=== PATIENT | male | born 1960 | race Two or more races ===

== ENCOUNTER → 2019-03-03 | Outpatient (CLI) | payer OTHER | LOC: RAD 09:21 | PROVIDERS: ATTEND Registered Nurse | DX: R91.1 Solitary pulmonary nodule (principal) | CPT/HCPCS: 71250 ==

== ENCOUNTER 2019-04-04 18:27 | Emergency (ER) | payer OTHER ==
--- NOTE | 2019-04-04 20:36 | ER Document Report ---
ED Medical Screen (RME) - General Chief Complaint: Breathing Difficulty Stated Complaint: DIFFICULTY BREATHING Time Seen by Provider: 04/04/19 20:30 Primary Care Provider: MUNIRA HICKS FNP-C [Primary Care Provider] - Follow up as needed Mode of Arrival: Medic Information source: Patient Notes: 58-year-old male presented to ED for complaint of shortness of breath cough congestion for a week. He states he went to [facility] today they diagnosed him with pneumonia left lung gave him breathing treatments in the ER office and then went him to the emergency room because his O2 sats were too low. His O2 sat right now is 95% with a pulse of 84. Patient is alert oriented he is coughing consistently. We will get blood blood cultures and chest x-ray and have him examined by another provider. He states he does not drink smoke or use any drugs. I have greeted and performed a rapid initial assessment of this patient. A comprehensive ED assessment and evaluation of the patient, analysis of test results and completion of medical decision making process will be conducted by an additional ED providers. TRAVEL OUTSIDE OF THE [place] IN LAST 30 DAYS: No - Related Data Allergies/Adverse Reactions: No Known Allergies Allergy (Verified 05/15/15 01:02) Past Medical History - General Information source: Patient - Social History Cigarette use (# per day): No - Former smoker Chew tobacco use (# tins/day): No Frequency of alcohol use: None Drug Abuse: None Lives with: Family Family history: Reviewed & Not Pertinent - Past Medical History Cardiac Medical History: Reports: None Pulmonary Medical History: Reports: Hx Asthma, Hx Pneumonia Neurological Medical History: Reports: None Endocrine Medical History: Reports: None Renal/ Medical History: Reports: Hx Kidney Stones Malignancy Medical History: Reports None GI Medical History: Reports: Hx Colonoscopy Musculoskeltal Medical History: Reports Hx Musculoskeletal Trauma - Ankle foot Skin Medical History: Reports None Psychiatric Medical History: Reports: None Traumatic Medical History: Reports: Hx Fractures - Ankle and foot Infectious Medical History: Reports: None Surgical Hx: Negative Past Surgical History: Reports: None - Immunizations Hx Diphtheria, Pertussis, Tetanus Vaccination: No Physical Exam - Vital signs Vitals: Temp Pulse Resp BP Pulse Ox 97.9 F 79 24 H 125/64 92 04/04/19 18:40 04/04/19 18:40 04/04/19 18:40 04/04/19 18:40 04/04/19 18:40 Course - Vital Signs Vital signs: Temp Pulse Resp BP Pulse Ox 97.9 F 79 24 H 125/64 92 04/04/19 18:40 04/04/19 18:40 04/04/19 18:40 04/04/19 18:40 04/04/19 18:40 Doctor's Discharge - Discharge Referrals: MUNIRA HICKS, [facility]-C [Primary Care Provider] - Follow up as needed
[2019-04-04] MEDS ORDERED: LIDOCAINE 1% INJ-PF (10 MG/ML) 30 ML SDV INJ ONE (20:37)
[2019-04-04] MEDS ORDERED: CEFTRIAXONE INJ 1000 MG VIAL IM ONE (20:37)
--- NOTE | 2019-04-04 21:31 | RADIOLOGY REPORT (SQ) ---
EXAM DESCRIPTION: XR CHEST 2 VIEWS COMPLETED DATE/TME: 04/04/2019 20:36 CLINICAL HISTORY: 58 years, Male, Cough congestion, x-ray*medical pneumonia COMPARISON: Chest CT dated 03/03/2019 NUMBER OF VIEWS: Two TECHNIQUE: Frontal and lateral radiograph were acquired LIMITATIONS: None. FINDINGS: Cardiac and mediastinal contours are normal. Lungs are clear. No pleural effusion or pneumothorax. IMPRESSION: No acute disease. copyright 2010 [employer]- All Rights Reserved
[2019-04-04 21:45] LABS: APPEARANCE,URINE CLEAR; BILIRUBIN,URINE NEGATIVE (NEGATIVE); COLOR,URINE YELLOW; GLUCOSE, URINE NEGATIVE (NEGATIVE); KETONES,URINE NEGATIVE (NEGATIVE); PROTEIN,URINE NEGATIVE (NEGATIVE); URINE SPECIFIC GRAVITY 1.011; UROBILINOGEN,URINE NEGATIVE mg/dL (<2.0)
[2019-04-04 21:58] LABS: ABSOLUTE BASOPHILS # (AUTO) 0.1 10^3/uL (0.0-0.2); ABSOLUTE EOSINOPHILS # (AUTO) 0.5 10^3/uL (0.0-0.6); ABSOLUTE LYMPHOCYTES (AUTO) 1.7 10^3/uL (0.5-4.7); ABSOLUTE MONOCYTES (AUTO) 0.2 10^3/uL (0.1-1.4); BASOPHILS % (AUTO) 0.7 % (0-2); EOSINOPHILS % (AUTO) 4.5 % (0-6); HEMATOCRIT 43.7 % (37.9-51.0); HEMOGLOBIN 15.1 g/dL (13.5-17.0); LYMPHOCYTES % (AUTO) 14.5 % (13-45); MEAN CORPUSCULAR HEMOGLOBIN 30.5 pg (27.0-33.4); MEAN CORPUSCULAR HGB CONC 34.5 g/dL (32.0-36.0); MEAN CORPUSCULAR VOLUME 88 fl (80-97); MONOCYTES % (AUTO) 1.9 % (3-13); PLATELET COUNT 233 10^3/uL (150-450); RED BLOOD COUNT 4.94 10^6/uL (4.35-5.55); RED CELL DISTRIBUTION WIDTH 14.3 % (11.5-14.0); SEGMENTED NEUTROPHILS % (AUTO) 78.4 % (42-78); TOTAL CELLS COUNTED % (AUTO) 100 %; WHITE BLOOD COUNT 11.5 10^3/uL (4.0-10.5)
[2019-04-04 22:02] LABS: ALKALINE PHOSPHATASE 110 U/L (38-126); ANION GAP 15 (5-19); ASPARTATE AMINO TRANSFERASE 43 U/L (17-59); BILIRUBIN,DIRECT 0.3 mg/dL (0.0-0.4); BLOOD UREA NITROGEN 13 mg/dL (7-20); CALCIUM 10.4 mg/dL (8.4-10.2); CARBON DIOXIDE 23 mmol/L (22-30); CHLORIDE 101 mmol/L (98-107); GLUCOSE 137 mg/dL (75-110); POTASSIUM 4.6 mmol/L (3.6-5.0); TOTAL PROTEIN 8.8 g/dL (6.3-8.2)
[2019-04-05] MEDS ORDERED: IPRATROPIUM/ALBUTEROL 0.5-2.5 MG/3 ML AMPUL NEB ONE ×2 (01:28→03:15)
[2019-04-05] MEDS ORDERED: MAGNESIUM SULFATE/D5W 1 GM/100 ML RTUPB IV ONE (01:28)
--- NOTE | 2019-04-05 01:51 | ER Document Report ---
ED General - General Chief Complaint: Shortness Of Breath Stated Complaint: DIFFICULTY BREATHING Time Seen by Provider: 04/04/19 20:30 Primary Care Provider: MUNIRA HICKS FNP-C [ALLIED HEALTH PROFESSIONAL] - Follow up as needed Mode of Arrival: Medic Notes: 58-year-old male with history of COPD and asthma presents for shortness of breath for 1 week. Patient has been having productive cough with sputum and congestion. Patient denies being on oxygen at home. Patient states he went to urgent care and he was sent over due to his O2 sats being in 95%. Patient states he had a chest x-ray done there and was told he may have pneumonia. Patient received 3 breathing treatments at the urgent care and 1 by EMS with little relief. Patient also states that he was given Solu-Medrol by EMS. Patient denies any fever, chest pain, nausea/vomiting. Patient denies coughing up blood. TRAVEL OUTSIDE OF THE [place] IN LAST 30 DAYS: No - Related Data Allergies/Adverse Reactions: No Known Allergies Allergy (Verified 05/15/15 01:02) Past Medical History - General Information source: Patient - Social History Smoking Status: Former Smoker Cigarette use (# per day): No - Former smoker Chew tobacco use (# tins/day): No Frequency of alcohol use: None Drug Abuse: None Lives with: Family Family History: Reviewed & Not Pertinent Patient has suicidal ideation: No Patient has homicidal ideation: No - Past Medical History Cardiac Medical History: Reports: None Pulmonary Medical History: Reports: Hx Asthma, Hx Pneumonia Neurological Medical History: Reports: None Endocrine Medical History: Reports: None Renal/ Medical History: Reports: Hx Kidney Stones Malignancy Medical History: Reports None GI Medical History: Reports: Hx Colonoscopy Musculoskeletal Medical History: Reports Hx Musculoskeletal Trauma - Ankle foot Skin Medical History: Reports None Psychiatric Medical History: Reports: None Traumatic Medical History: Reports: Hx Fractures - Ankle and foot Infectious Medical History: Reports: None Surgical Hx: Negative Past Surgical History: Reports: None - Immunizations Hx Diphtheria, Pertussis, Tetanus Vaccination: No Review of Systems - Review of Systems Notes: Constitutional: Negative for fever. HENT: Positive for congestion and productive cough. Negative for sore throat. Eyes: Negative for visual changes. Cardiovascular: Negative for chest pain. Respiratory: Positive for shortness of breath. Gastrointestinal: Negative for abdominal pain, vomiting or diarrhea. Genitourinary: Negative for dysuria. Musculoskeletal: Negative for back pain. Skin: Negative for rash. Neurological: Negative for headaches, weakness or numbness. 10 point ROS negative except as marked above and in HPI. Physical Exam - Vital signs Vitals: Temp Pulse Resp BP Pulse Ox 97.9 F 79 24 H 125/64 92 04/04/19 18:40 04/04/19 18:40 04/04/19 18:40 04/04/19 18:40 04/04/19 18:40 - Notes Notes: GENERAL: Well-appearing, well-nourished and in no acute distress. HEAD: Atraumatic, normocephalic. EYES: Extraocular movements intact, sclera anicteric, conjunctiva are normal. NECK: Normal range of motion, supple without lymphadenopathy or JVD. LUNGS: Decreased breath sounds with mild wheezing. No accessory muscle use. No cyanosis. HEART: Regular rate and rhythm without murmurs, rubs or gallops. EXTREMITIES: Normal range of motion, no pitting or edema. No clubbing or cyanosis. NEUROLOGICAL: Cranial nerves II through XII grossly intact. Normal speech, normal gait. PSYCH: Normal mood, normal affect. SKIN: Warm, Dry, normal turgor, no rashes or lesions noted. Course - Re-evaluation Re-evalutation: 04/05/19 58-year-old male with history of COPD and asthma presents for shortness of breath and oxygen level of 95%. Patient is coming from urgent care where he was told he possibly had a pneumonia. Patient was given breathing treatments at the urgent care and also breathing treatment with EMS. Patient was also given Solu-Medrol with EMS. Decreased breath sounds throughout with mild wheezing. No accessory muscle use. No cyanosis. No tripoding. Chest x-ray does not show any pneumonia however patient was given Rocephin out in triage. Lab work is otherwise reassuring. No leukocytosis. Patient is afebrile. Breathing treatment and magnesium ordered. Breathing has improved - increased air movement with wheezing throughout 2nd breathing treatment ordered. 04/05/19 04:33 Pt feeling better. O2 91-93% Pt to be ambulated with pulse ox. 04/05/19 04:47 Pt ambulated - O2 91%. Pt prescribed albuterol inhaler, prednisone, and Tessalon Perles. Pt given strict return precautions. Discussed all results with pt. Pt voices understanding and agrees with plan of care. - Vital Signs Vital signs: Temp Pulse Resp BP Pulse Ox 97.8 F 84 16 129/84 H 93 04/05/19 04:21 04/04/19 20:35 04/05/19 04:01 04/05/19 04:01 04/05/19 04:01 - Laboratory Result Diagrams: 04/04/19 21:07 04/04/19 21:07 Laboratory results interpreted by me: 04/04/19 04/04/19 21:07 21:07 WBC 11.5 H RDW 14.3 H [place] % (Auto) 1.9 L Absolute Neuts (auto) 9.0 H Seg Neutrophils % 78.4 H Glucose 137 H Calcium 10.4 H Total Protein 8.8 H Discharge - Discharge Clinical Impression: COPD exacerbation Condition: Stable Disposition: HOME, SELF-CARE Instructions: Bronchitis ([facility]), Bronchitis With Bronchospasm (Wheezing) ([facility]) Additional Instructions: Your chest x-ray does not show any pneumonia. Please take prednisone as prescribed and finish all doses even if you feel better. Please take Tessalon Perles as needed for cough. Please use an albuterol inhaler as needed for shortness of breath. Please follow-up with your primary care doctor in 3 to 5 days. Please follow-up with [facility] listed in 3 to 5 days. Return immediately to ER if you start having any worsening symptoms, including increased shortness of breath, coughing up blood, fever, chest pain, inability to walk a few feet without feeling short of breath, feeling like you are going to pass out, passing out, or any other symptoms that are concerning to you. Prescriptions: Benzonatate [Tessalon Perles 100 mg Capsule] 100 mg PO Q8HP PRN #40 capsule PRN Reason: Prednisone [Deltasone 20 mg Tablet] 1 tab PO BID 7 Days #14 tablet Albuterol Sulfate [Proair HFA Inhalation Aerosol 8.5 gm MDI] 2 puff IH Q4H PRN #1 mdi PRN Reason: Referrals: MUNIRA HICKS FNP-C [ALLIED HEALTH PROFESSIONAL] - Follow up in 3-5 days RAY PARKER MD [ACTIVE STAFF] - Follow up in 3-5 days
[2019-04-05] MEDS ORDERED: BENZONATATE 100 MG CAPSULE PO ONE (03:15)
[2019-04-05 05:19] VITALS: BP 119/73
== END 2019-04-05 05:21 | disposition home or self-care (01) ==
LOC: ER 18:27
DX: J44.1 Chronic obstructive pulmonary disease with (acute) exacerbation (principal); R05 Cough; R06.02 Shortness of breath; Z87.891 Personal history of nicotine dependence
CPT/HCPCS: 94640 ×2; 99285; 96372; 96360; 96361; 36415; 87040; 85025; 80053; 81001; 71046; J3490; J3475; J0696; J7620

== ENCOUNTER 2019-08-01 07:15 | Day surgery (SDC) | payer OTHER ==
[~2019-08-01 07:15] MED LIST: NORMAL SALINE 1000 ML (RENAL PATIENTS) IV PRN; PROPOFOL INJ 200 MG/20 ML VIAL IV ONE
[2019-08-01] MEDS ORDERED: FENTANYL CITRATE INJ/PF 100 MCG/2 ML AMPUL IV PRN ×3 (07:47)
[2019-08-01] MEDS ORDERED: DIPHENHYDRAMINE HCL 50 MG/ML VIAL IV PRN (07:47)
[2019-08-01] MEDS ORDERED: ONDANSETRON HCL INJ/PF 4 MG/2 ML SDV IV PRN (07:47)
[2019-08-01] MEDS ORDERED: PROMETHAZINE HCL INJ 25 MG/1 ML VIAL IV PRN ×2 (07:47)
[2019-08-01] MEDS ORDERED: MEPERIDINE HCL/PF INJ 25 MG/1 ML DISP.SYRIN IV PRN (07:47)
--- NOTE | 2019-08-01 11:01 | Operative Report ---
Operative Report DATE OF SURGERY: 08/01/19 Operative Report: The risks benefits and alternatives of the procedure explained to the patient in detail and informed consent is obtained.A GIF Olympus video scope was inserted into the patient's mouth and hypopharynx, the esophagus is identified intubated and insufflated ,the scope was then advanced through the esophagus stomach and duodenum, retroflexion maneuver is done the esophagus stomach and first and second portions of the duodenum examined PREOPERATIVE DIAGNOSIS: Epigastric pain, gastroesophageal reflux disease POSTOPERATIVE DIAGNOSIS: Gastritis status post biopsy,. esophagitis status post biopsy rule out Santiago's esophagus OPERATION: EGD with biopsy SURGEON: ADAM LONG ANESTHESIA: LMAC TISSUE REMOVED OR ALTERED: As noted above. COMPLICATIONS: None. ESTIMATED BLOOD LOSS: None. INTRAOPERATIVE FINDINGS: As noted above. PROCEDURE: Patient tolerated the procedure well. No immediate postprocedure complications are noted. Patient is discharged in good condition. Discharge date 08/01/2019. Discharge diet: Regular. Discharge activity: Regular. 2 to 3-week follow-up to discuss findings. Patient is instructed to call the office or proceed to the emergency room should there be any further problems questions. Wait on the pathology.
[2019-08-01 11:24] VITALS: BP 110/71
== END 2019-08-01 11:40 | disposition home or self-care (01) ==
LOC: OROUT 07:15
PROVIDERS: ATTEND Internal Medicine Gastroenterology
DX: K29.50 Unspecified chronic gastritis without bleeding (principal); K21.0 Gastro-esophageal reflux disease with esophagitis; Z03.818 Encounter for observation for suspected exposure to other biological agents ruled out; J44.9 Chronic obstructive pulmonary disease, unspecified; E11.9 Type 2 diabetes mellitus without complications; E66.9 Obesity, unspecified; Z79.899 Other long term (current) drug therapy; Z79.84 Long term (current) use of oral hypoglycemic drugs
CPT/HCPCS: 43239; 82962; 87635; 88342 ×2; 88305 ×2; 00731; J2704; 731